=== PATIENT | female | born 2005 | race Caucasian/White ===

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

== ENCOUNTER 2025-02-08 02:48 | Outpatient (CLI) | payer MEDICAID, SELFPAY ==
[2025-02-08 14:11] LABS: Absolute Basophil Count 0.01 10^3/uL (0.0-0.2); Absolute Eosinophil Count 0.02 10^3/uL (0.0-0.7); Absolute Lymphocyte Count 1.11 10^3/uL (1.2-3.4); Absolute Monocyte Count 0.31 10^3/uL (0.1-0.8); Absolute Neutrophil Count 1.62 10^3/uL (1.2-6.7); Basophils % 0.3 %; Eosinophils % 0.7 %; HCT 38.4 % (36.0-46.0); HGB 12.2 g/dL (11.2-15.7); Lymphocytes % 36.2 %; MCHC 31.8 % (32.0-36.0); MCV 82 fL (80-95); Monocytes % 10.1 %; Neutrophils % 52.7 %; Platelet Count 237 10^3/uL (130-400); RDW 14.1 % (11.7-14.6); RDW-SD 41.1 fL; WBC 3.07 10^3/uL (4.4-10.8)
[2025-02-08 14:22] LABS: Hemoglobin A1C 5.2 % (<5.7)
[2025-02-08 15:52] LABS: Anion Gap 9.5 mmol/L (3-11); BUN 11 mg/dL (7-18); CO2 26.5 mmol/L (21.0-32.0); CREATININE 0.7 mg/dL (0.55-1.02); Calcium 9.6 mg/dL (8.5-10.1); Chloride 107 mmol/L (98-107); Cholesterol 163 mg/dL (<200); Ferritin 8 ng/mL (8-252); Folate 16.6 ng/mL (8.6-20.0); Glucose 78 mg/dL (74-106); HDL Cholesterol 81 mg/dL (>or=50); Potassium 4.1 mmol/L (3.5-5.1); Sodium 143 mmol/L (136-145); TSH (W/Ref FT4) 1.69 uIU/mL (0.36-3.74); Vitamin B12 858 pg/mL (193-986); Vitamin D 25 Total 21 ng/mL (30-100)
[2025-02-08 16:08] LABS: Triglyceride <25 mg/dL (<150)
[2025-02-08 16:44] LABS: LDL CHOLESTEROL 76 mg/dL (<100)
[2025-02-10 21:58] LABS: ALT 24 U/L (14-59); AST 19 U/L (15-37); Albumin 4.4 g/dL (3.4-5.0); Alkaline Phosphatase 64 U/L (46-116); Bilirubin, Direct 0.2 mg/dL (0.0-0.2); Bilirubin, Total 0.5 mg/dL (0.2-1.0); Total Protein 7.6 g/dL (6.4-8.2)
== END 2025-02-08 02:49 | disposition home or self-care (01) ==
PROVIDERS: PCP Nurse Practitioner Family; Visit Provider Nurse Practitioner Family
DX: N93.9 Abnormal uterine and vaginal bleeding, unspecified (principal); R53.83 Other fatigue; Z00.00 Encounter for general adult medical examination without abnormal findings
CPT/HCPCS: 36415; 80048; 80061; 80076; 82306; 83721; 82607; 82728; 82746; 83036; 84443; 85025

== ENCOUNTER 2025-07-30 03:31 | Outpatient (CLI) | payer MEDICAID, SELFPAY ==
[2025-07-30 11:21] LABS: Abs Immature Grans 0.01 10^3/uL (0.0-0.06); HCT 37.5 % (36.0-46.0); HGB 11.6 g/dL (11.2-15.7); Immature Grans % 0.3 %; MCH 25.2 pg (27.0-33.0); MCHC 30.9 % (32.0-36.0); MCV 81 fL (80-95); MPV 11.8 fL (8.0-11.0); Platelet Count 236 10^3/uL (130-400); RBC 4.61 10^6/uL (3.93-5.22); RDW 14.1 % (11.7-14.6); RDW-SD 41.4 fL; WBC 3.14 10^3/uL (4.4-10.8)
[2025-07-30 11:24] LABS: ESR 1 mm/hr (0-20)
[2025-07-30 12:11] LABS: Iron 20 ug/dL (50-170); Total Iron Binding Capacity 489 ug/dL (250-450); Transferrin Sat 4 % (15-50)
[2025-07-30 12:39] LABS: ALT 19 U/L (14-59); AST 13 U/L (15-37); Albumin 4.2 g/dL (3.4-5.0); Alkaline Phosphatase 58 U/L (46-116); Anion Gap 6.1 mmol/L (3-11); BUN 9 mg/dL (7-18); Bilirubin, Total 0.4 mg/dL (0.2-1.0); CO2 30.9 mmol/L (21.0-32.0); Calcium 9.4 mg/dL (8.5-10.1); Calculated LDL 85 mg/dL (<100); Chloride 105 mmol/L (98-107); Cholesterol 165 mg/dL (<200); Estimated GFR 126.11 (mL/min/1.73m2); Ferritin 4 ng/mL (8-252); Folate 14.3 ng/mL (8.6-20.0); Glucose 91 mg/dL (74-106); HDL Cholesterol 71 mg/dL (>or=50); Potassium 3.8 mmol/L (3.5-5.1); Sodium 142 mmol/L (136-145); Total Protein 7.6 g/dL (6.4-8.2); Triglyceride 47 mg/dL (<150); Vitamin B12 917 pg/mL (193-986); Vitamin D 25 Total 28 ng/mL (30-100)
[2025-07-30 15:01] LABS: C-Reactive Protein < 0.50 mg/dL (<or=0.5)
[2025-08-02 09:00] LABS: HIV-1/2 Ag & Ab Screen Negative (Negative)
[2025-08-02 11:22] LABS: Hepatitis C Ab w Rflx HCV PCR Negative (Negative)
== END 2025-07-30 03:32 | disposition home or self-care (01) ==
PROVIDERS: PCP Nurse Practitioner Family; Visit Provider Nurse Practitioner Family
DX: E55.9 Vitamin D deficiency, unspecified (principal); E61.1 Iron deficiency; D72.819 Decreased white blood cell count, unspecified; G47.10 Hypersomnia, unspecified
CPT/HCPCS: 36415; 80053; 80061; 82306; 85652; 86803; 87389; 82607; 82728; 82746; 83020; 83540; 83550; 85025; 86038; 86140; 86431